=== PATIENT | female | born 1945 | race African-American/Black ===

== ENCOUNTER 2017-09-13 13:22 | Outpatient (CLI) | payer OTHER ==
--- NOTE | 2017-09-13 17:38 | MRI ---
MRI THORACIC SPINE WITH AND WITHOUT CONTRAST: Comparison: 09-02-16, 04-22-16 History: Interval surgical excision of a previously noted meningioma. Technique: Thoracic spine MRI is performed with and without contrast administration. Multisequential , multiplanar reformats. FINDINGS: There is appropriate T1 marrow signal intensity of the thoracic vertebrae. Thoracic spine vertebral body height is maintained. No fracture. No abnormal enhancement of the thoracic vertebrae. Heterogeneous marrow signal intensity due to yoli scent change is noted. Mild endplate changes are identified throughout the thoracic spine. No abnorm al enhancement. Visualized mediastinal structures, lung parenchyma and visualized solid organs are unremarkable. The thoracic cord has an overall normal size and signal intensity. There are stable degenerative viola nges of the thoracic spine. There is no evidence of a intradural, extramedullary enhancing focus. Pr eviously noted meningioma at the T11-12 level is not evident. There is no evidence of new or abnorma l enhancement. IMPRESSION: 1. Previous excision of the previously noted meningioma at T11-12. 2. Expected post-operative changes. No abnormal enhancement. POS: MILY
== END 2017-09-13 13:23 | disposition home or self-care (01) ==
LOC: TBSIIMAG 13:22
PROVIDERS: ATTEND Surgery
DX: D32.1 Benign neoplasm of spinal meninges (principal)
CPT/HCPCS: 72157

== ENCOUNTER 2018-06-10 09:08 | Outpatient (CLI) | payer OTHER | END 2018-06-10 09:09 | disposition home or self-care (01) | LOC: BICMAMMO 09:08 | PROVIDERS: ATTEND Family Medicine | DX: Z12.31 Encounter for screening mammogram for malignant neoplasm of breast (principal) | CPT/HCPCS: 77063; 77067 ==

== ENCOUNTER 2019-06-12 13:36 | Outpatient (CLI) | payer OTHER ==
--- NOTE | 2019-06-12 15:37 | MMO ---
Bilateral MAMMO Bilat Screen [facility]. CLINICAL HISTORY: Patient is 73 years old and is seen for screening. The patient has no family history of breast cancer. The patient has no personal history of cancer. VIEWS: The views performed were: bilateral craniocaudal with tomosynthesis and bilateral mediolateral oblique with tomosynthesis. FILMS COMPARED: The present examination has been compared to prior imaging studies performed at [facility] on 06/08/2017 and 06/10/2018, and at [facility] on 04/25/2015 and 04/09/2016. MAMMOGRAM FINDINGS: The breasts are heterogeneously dense, which could obscure a lesion on mammography. There are benign appearing calcifications seen in both breasts. There are no suspicious masses, suspicious calcifications, or new areas of architectural distortion. IMPRESSION: THERE IS NO MAMMOGRAPHIC EVIDENCE OF MALIGNANCY. A ROUTINE FOLLOW-UP MAMMOGRAM IN 1 YEAR IS RECOMMENDED. THE RESULTS OF THIS EXAM WERE SENT TO THE PATIENT. ACR BI-RADS Category 2 - Benign finding MAMMOGRAPHY NOTE: 1. A negative mammogram report should not delay a biopsy if a dominant of clinically suspicious mass is present. 2. Approximately 10% to 15% of breast cancers are not detected by mammography. 3. Adenosis and dense breasts may obscure an underlying neoplasm. Reported by: ZURI HURD MD Electonically Signed: [id number]
== END 2019-06-12 13:37 | disposition home or self-care (01) ==
LOC: BICMAMMO 13:36
PROVIDERS: ATTEND Family Medicine
DX: Z12.31 Encounter for screening mammogram for malignant neoplasm of breast (principal)
CPT/HCPCS: 77063; 77067

== ENCOUNTER 2019-11-03 14:53 | Outpatient (CLI) | payer OTHER ==
--- NOTE | 2019-11-03 20:14 | MRI ---
MRI OF THE THORACIC SPINE WITH AND WITHOUT CONTRAST: 11/03/19 INDICATION: History of meningioma excision in 2016. COMPARISON: MR thoracic spine with and without contrast dated 09/13/17. TECHNIQUE: Multiplanar and multisequence MR images were obtained of the thoracic with and without contrast utili zing 9 mL of Multihance. FINDINGS: Laminectomy defects at T11 and T12 are stable appearing. The spinal cord has a normal signal intensit y. Bone marrow signal intensity appears within normal limits. There is multilevel disc degenerative c hanges involving the thoracic spine. No central canal narrowing is evident. No extra-axial mass is gr ossly evident. No definite abnormal region of enhancement is noted outside of expected mild postopera tive changes at the laminectomy site. At T1-T2, there is no appreciable central canal or neural foraminal narrowing. At T2-T3, there is no appreciable central canal or neural foraminal narrowing. At T3-T4, there is no appreciable central canal or neural foraminal narrowing. At T4-T5, there is no appreciable central canal or neural foraminal narrowing. At T5-T6, there is a mild broad based bulge but no appreciable central canal or neural foraminal narr owing. At T6-T7, there is a mild broad based bulge but no appreciable central canal or neural foraminal narr owing. At T7-T8, there is a mild broad based bulge but no appreciable central canal or neural foraminal narr owing. At T8-T9, there is a mild broad based bulge but no appreciable central canal or neural foraminal narr owing. At T9-T10, there is a mild broad based bulge but no appreciable central canal or neural foraminal na rrowing. At T10-T11, there is no appreciable central canal or neural foraminal narrowing. At T11-T12, there is no appreciable central canal or neural foraminal narrowing. At T12-L1, there is no appreciable central canal or neural foraminal narrowing. The visualized paravertebral soft tissues demonstrate stable ectasia of the descending thoracic aorta measuring 2.9 cm. No area of abnormal enhancement is demonstrated. IMPRESSION: 1. No evidence to suggest recurrent meningioma at the resection site. 2. Multilevel spondylosis of the thoracic spine. POS: OFF
== END 2019-11-03 14:54 | disposition home or self-care (01) ==
LOC: SCSMRI 14:53
PROVIDERS: ATTEND Surgery
DX: D32.9 Benign neoplasm of meninges, unspecified (principal); M47.814 Spondylosis without myelopathy or radiculopathy, thoracic region
CPT/HCPCS: 72157; 82565

== ENCOUNTER 2020-02-14 12:45 | Outpatient (CLI) | payer OTHER ==
[2020-02-14 13:14] LABS: Estimated GFR-MDRD - POC Greater than 90
[2020-02-14] MEDS ORDERED: Iopamidol 370 76% 100 ML VIAL ONE (13:55)
--- NOTE | 2020-02-14 13:56 | CT ---
CT OF THE CHEST WITH CONTRAST CT OF THE ABDOMEN AND PELVIS WITH CONTRAST: Date: 02/14/2020 COMPARISON: CT chest dated 05/01/2016. HISTORY: Rectal mass seen on recent colonoscopy. TECHNIQUE: 1. Multiple contiguous axial images were obtained in a CT of the chest with contrast. Sagittal and c oronal reformats were performed. 2. Multiple contiguous axial images were obtained in a CT of the abdomen and pelvis with contrast. P O contrast was administered. Sagittal and coronal reformats were performed. FINDINGS: CT CHEST: A calcified granuloma is seen in the left lung base. No other pulmonary nodules are seen. No pneumoth orax or pleural effusions are seen. The heart is normal in size without focal cardiac abnormality. No hilar or mediastinal lymphadenopath y seen. Calcifications seen in the coronary arteries and aorta. Scattered lucencies in the bones may be secondary to osteoporosis. The chest wall soft tissues are un remarkable. CT ABDOMEN/PELVIS: The liver, gallbladder, kidneys, adrenal glands, spleen, and pancreas are unremarkable. No free air, free fluid, or stranding changes are seen in the abdomen or pelvis. There is a 4.0 cm hypodensity in the right aspect of the pelvis which may represent a right ovarian c yst/follicle. The uterus is not definitely seen and may have been removed. Scattered diverticula are seen in the colon. No obvious colon mass is appreciated, but there is a seg ment of decompressed sigmoid colon which could obscure a lesion in this location. The small bowel and appendix are unremarkable. No abdominal or pelvic lymphadenopathy appreciated. Degenerative changes are seen in the spine. Multiple scattered lytic lesions in the spine may be seco ndary to osteoporosis. The abdominal wall soft tissues are unremarkable. IMPRESSION: 1. No evidence of intrathoracic metastatic disease. 2. No obvious colon mass identified. 3. No evidence of intra-abdominal/pelvic metastatic disease. 4. Hypodense region in the right aspect of the pelvis may represent a right ovarian cyst/follicle. C orrelate with surgical history. A pelvic ultrasound may be necessary for further evaluation. POS: AYANA
== END 2020-02-14 12:46 | disposition home or self-care (01) ==
LOC: BICCT 12:45
PROVIDERS: ATTEND Internal Medicine
DX: K62.89 Other specified diseases of anus and rectum (principal)
CPT/HCPCS: 71260; 74177; 82565; Q9967

== ENCOUNTER 2020-03-06 10:44 | Outpatient (CLI) | payer OTHER ==
--- NOTE | 2020-03-06 13:05 | ULT ---
PELVIC ULTRASOUND: Date: 03/06/2020 Transabdominal ultrasound of pelvis performed. INDICATION: Follow-up CT of 02/14/2020 which revealed a right adnexal cyst. FINDINGS: Patient is post hysterectomy. History states patient is also post left oophorectomy. Right ovary is identified. Color Doppler with spectral analysis demonstrates blood flow to the right ovarian. There are right ovarian follicular cysts. The largest follicular cyst on the right measures 2.0 x 4.0 cm. There is internal septation. IMPRESSION: Right ovarian cyst identified. This is an abnormal finding in this age patient. Suggest [employer] consultat ion. POS: SJJOSE
== END 2020-03-06 10:45 | disposition home or self-care (01) ==
LOC: BICULT 10:44
PROVIDERS: ATTEND Family Medicine
DX: N83.201 Unspecified ovarian cyst, right side (principal)
CPT/HCPCS: 76856; 93976

== ENCOUNTER 2020-05-03 07:14 | Outpatient (CLI) | payer OTHER ==
--- NOTE | 2020-05-03 16:36 | RAD ---
CHEST ONE VIEWS: 05/03/20 at 2:11 p.m. HISTORY: Preop evaluation. FINDINGS: The heart size is normal. The aorta is tortuous and the lungs are expanded without lobar consolidatio n, pneumothoraces, or pleural effusions. IMPRESSION: No radiographic evidence of acute cardiopulmonary process. POS: TRACYA
[2020-05-03 16:43] LABS: #Lymphocytes 1.8 thou/uL (1.20-3.40); #Monocytes 0.5 thou/uL (0.11-0.59); #Neutrophils 3.9 thou/uL (1.40-6.50); %Basophils 0.8 % (0.0-1.0); %Eosinophils 0.3 % (0.0-10.0); %Lymphocytes 28.6 % (21.0-51.0); %Monocytes 8.4 % (0.0-10.0); Hemoglobin 16.8 g/dL (12.0-16.0); Mean Corpuscular HGB CONC 32.4 g/dL (32.0-36.0); Mean Corpuscular Hemoglobin 31.2 pg (27.0-31.0); Mean Corpuscular Volume 96.1 fL (78.0-98.0); Mean Platelet Volume 8.6 fL (7.4-10.4); Platelet Count 211 thou/uL (130-400); RBC Distribution Width 12.3 % (11.5-14.5); Red Blood Cell (RBC) Count 5.38 mill/uL (4.20-5.40); White Blood Cell (WBC) Count 6.3 thou/uL (4.8-10.8)
[2020-05-03 16:50] LABS: Anion Gap 11 mmol/L (10-20); BUN (Urea Nitrogen) 6 mg/dL (9.8-20.1); Calc. Creatinine Clearance 0 mL/min (70-130); Calcium 10.8 mg/dL (7.8-10.44); Carbon Dioxide 29 mmol/L (23-31); Chloride 103 mmol/L (98-107); Estimated GFR-MDRD 88; Glucose 94 mg/dL (83-110); Potassium 4.6 mmol/L (3.5-5.1); Sodium 138 mmol/L (136-145)
[2020-05-04 12:16] LABS: SARS-CoV-2 MS2 Positive; SARS-CoV-2 N Gene Negative; SARS-CoV-2 S Gene Negative; SARS-CoV-2 orf1ab Negative
== END 2020-05-03 07:15 | disposition home or self-care (01) ==
LOC: LABBT 07:14
PROVIDERS: ATTEND Specialist
DX: Z01.818 Encounter for other preprocedural examination (principal); Z11.59 Encounter for screening for other viral diseases; K62.89 Other specified diseases of anus and rectum; Z72.0 Tobacco use
CPT/HCPCS: 71045; 80048; 85025; 87635; 93005; 93010; U0003

== ENCOUNTER 2020-05-03 12:30 | Inpatient (IN) | payer OTHER, MEDICARE ==
[2020-05-02 10:29] VITALS: BMI 18.1
[2020-05-07] MEDS ORDERED: Ketorolac Tromethamine 30 MG/ML VIAL ONE (06:11)
[2020-05-07] MEDS ORDERED: Acetaminophen 500 MG TAB ONE (06:12)
[2020-05-07] MEDS ORDERED: Fentanyl 100 MCG/2 ML VIAL ONE (07:11)
[2020-05-07] MEDS ORDERED: SUGAMMADEX SODIUM 500 MG/5 ML VIAL ONE (07:24)
[2020-05-07] MEDS ORDERED: Bupivacaine 0.25% HCL 30 ML VIAL ONE (07:37)
[2020-05-07] MEDS ORDERED: Lidocaine 1% w/Epinephrine 1:100K 20 ML VIAL ONE (07:37)
[2020-05-07] MEDS ORDERED: Phenylephrine 10 MG/ML VIAL ONE (08:15)
--- NOTE | 2020-05-07 11:22 | OP ---
DATE OF PROCEDURE: 05/07/2020 PREOPERATIVE DIAGNOSIS: High rectal polyp. POSTOPERATIVE DIAGNOSES: High rectal polyp with a large prolapsing anterior internal/external hemorrhoid, posterior anal fissure. PROCEDURES PERFORMED: Transanal minimally invasive resection of a high rectal polyp, single column hemorrhoidectomy, posterior fissure repair. ANESTHESIA: General endotracheal. INDICATIONS: The patient is a 74-year-old black female. She underwent colonoscopy recently which demonstrated a large rectal polyp not amenable to colonoscopic removal. This was apparently within the upper rectum. She is taken to the operating room at this time for minimally invasive transanal resection. DESCRIPTION OF OPERATION: Informed consent was obtained. The patient was taken to the operating room, where general endotracheal anesthesia was obtained with the patient in supine position. She was then placed into dorsal lithotomy using Terrence stirrups. Perianal area was prepped with Betadine, draped in sterile fashion. Local anesthetic was infiltrated using a mixture of 1% lidocaine with epinephrine and 0.25% Marcaine. This was infiltrated in a 4-quadrant intersphincteric fashion. The anus was then gently dilated up to 2 fingers. I then obtained the anal dilator, which entered easily. I then placed the sleeve of the applied GelPOINT system. This seated nicely within the anal canal. The two external flanges were secured to the skin with 3-0 Vicryl suture. The external aspect of the system was placed and pneumorectum was obtained. Complete paralysis maintained throughout the case. The rectum was inspected and there was no evidence of abnormality within the lower rectum. By manipulating through the first two folds of the rectum and lower colon, I was able to clearly identify the semipedunculated polyp void tissue. This was mobile. It was located on the anterior/left hand aspect. This was at about the 1 o'clock to 2 o'clock radian. With some degree of difficulty, I was able to remove the polyp with appropriate mucosal margins using monopolar electrocautery. This specimen was removed and submitted as pathology. With further difficulty, I placed 2 interrupted sutures of 3-0 Vicryl to approximate the mucosal edges of the defect. These sutures were tied with an extracorporeal knot pusher. The GelPOINT system was removed. The patient was noted to have a fissure posteriorly, likely from dilation. The incision was closed using a running locking suture of 3-0 Vicryl. The patient had a large prolapsing very friable appearing internal/external hemorrhoid. This was located anteriorly. Additional local anesthetic was infiltrated. This was elliptically excised in a radial fashion. Hemostasis was obtained with electrocautery. This defect was also closed with a running locking suture of 3-0 Vicryl. Avitene obtained was placed within the canal. Dry gauze dressing and mesh pants placed externally. There were no complications. The patient tolerated the procedure well and was taken to recovery room in stable condition. Job ID: [id number]
[2020-05-07] MEDS ORDERED: Dexamethasone 20 MG/5 ML VIAL ONE (11:30)
[2020-05-07] MEDS ORDERED: Ondansetron PF 4 MG/2 ML Vial ONE (11:30)
[2020-05-07] MEDS ORDERED: PHENYLEPHRINE-NS 100 MCG/ML 10 ML SYRINGE ONE (11:30)
[2020-05-07] MEDS ORDERED: Lidocaine 1% PF 5 ML VIAL ONE (11:30)
[2020-05-07] MEDS ORDERED: Rocuronium Bromide 10 MG/ML (10ML VIAL) ONE (11:30)
[2020-05-07] MEDS ORDERED: diphenhydrAMINE 50 MG/ML VIAL ONE (11:30)
[2020-05-07] MEDS ORDERED: PROPOFOL 200 MG/20 ML VIAL ONE (11:30)
[2020-05-07] MEDS ORDERED: HYDROcodone/Acetaminophen 5/325 mg Tablet ONE (13:30)
--- NOTE | 2020-05-09 11:26 | DIS ---
DATE OF ADMISSION: 05/07/2020 DATE OF DISCHARGE: 05/07/2020 ADMISSION DIAGNOSIS: Rectosigmoid tumor. DISCHARGE DIAGNOSIS: Rectosigmoid tumor. OPERATION/PROCEDURE PERFORMED: Transanal minimally invasive resection of high rectal polyp and repair of anal fissure. ADMISSION HISTORY: The patient is a 74-year-old black female, presents to the hospital for treatment of high rectal polyp. She underwent surgery on the day of admission. HOSPITAL COURSE: Her surgery was challenging because was performed uneventfully. The mass was completely excised and the defect was closed. The fissure was subsequently repaired and hemorrhoid was removed. She was taken to recovery room where she was in stable condition. She was transferred to the Day Surgery Unit where again she remained stable with pain well controlled and she was discharged home. This was an outpatient surgery. She was instructed to follow up in about 2 weeks and given a prescription for E[place]. Job ID: [id number]
== END 2020-05-07 14:25 | disposition home or self-care (01) | DRG 349 ==
LOC: SURG A 05-07 05:46
PROVIDERS: ADMIT Specialist; ATTEND Specialist
PROC: 0DBP8ZZ Excision of Rectum, Via Natural or Artificial Opening Endoscopic (ICD-10-PCS; principal; 2020-05-07)
PROC: 06BY4ZC Excision of Hemorrhoidal Plexus, Percutaneous Endoscopic Approach (ICD-10-PCS; 2020-05-07)
PROC: 0DQQXZZ Repair Anus, External Approach (ICD-10-PCS; 2020-05-07)
DX: D12.8 Benign neoplasm of rectum (principal); K64.4 Residual hemorrhoidal skin tags; K64.8 Other hemorrhoids; K60.2 Anal fissure, unspecified; E55.9 Vitamin D deficiency, unspecified; I10 Essential (primary) hypertension; E78.5 Hyperlipidemia, unspecified; J30.9 Allergic rhinitis, unspecified; F17.210 Nicotine dependence, cigarettes, uncomplicated; Z79.899 Other long term (current) drug therapy; Z88.0 Allergy status to penicillin
CPT/HCPCS: 88304; 88307; J0694; J1100; J1200; J1885; J2001; J2370; J2405; J2704; J3010; S0020